=== PATIENT | female | born 1985 | race Caucasian/White ===

== ENCOUNTER 2016-08-10 09:37 | Emergency (ER) | payer OTHER ==
[2016-08-10] MEDS ORDERED: ZYRTEC5 M4 (09:46)
[2016-08-10] MEDS ORDERED: LEXAPRO20 MG PO (09:46)
== END 2016-08-10 10:25 | disposition home or self-care (01) ==
LOC: SED 09:37
DX: S61.200A Unspecified open wound of right index finger without damage to nail, initial encounter (principal); Z23 Encounter for immunization; W26.8XXA Contact with other sharp object(s), not elsewhere classified, initial encounter; Y92.69 Other specified industrial and construction area as the place of occurrence of the external cause; Y99.0 Civilian activity done for income or pay
CPT/HCPCS: 90471; 90715; 99283

== ENCOUNTER → 2016-10-23 | Outpatient (CLI) | payer OTHER ==
[~2016-10-23] MED LIST: LEXAPRO20 MG PO; ZYRTEC5 M4
--- NOTE | ~2016-10-23 | PFT ---
[id number] [facility] [address] [place], [place] [address] [id number] O MR#: [id number] NAME: KYREE WILL ROOM: SEX: F STUDY DATE/TIME: : 1985 AGE: 31 STUDY DESCRIPTION: Attending Physician: Jaime Rosales M.D. Referring Physician: Jaime Rosales M.D. Primary Care Physician: Jaime Rosales M.D. PULMONARY DIAGNOSTIC REPORT EXAM Pulmonary Function Test DESCRIPTION Spirometry is normal. There is no significant response to bronchodilators. Flow volume loop reveals a flattened inspiratory limb which can be seen in variable extrathoracic obstruction. Lung volumes reveal hyperinflation and air trapping. Diffusion capacity is normal. Clinical correlation will be needed for the possibility of upper airway obstruction. Dictated by... Heron Aguirre M.D. JEANNIE/karly TD: 10/23/2016 09:50 JOB #: [id number] PULMONARY DIAGNOSTIC REPORT Page 1 of 1
--- NOTE | ~2016-10-23 | ST ---
Unit #: [id number] #: [id number] Patient: KYREE WILL [id number] [address] [address] [id number] O MR#: [id number] NAME: KYREE WILL : 1985 SEX: F STUDY DATE/TIME: 10/26/2016 UNIT: [facility] ROOM: STUDY DESCRIPTION: Stress ECG Attending Physician: Jaime Rosales M.D. Referring Physician: Jaime Rosales M.D. Primary Care Physician: Jaime Rosales M.D. CARDIOLOGY REPORT PROCEDURE PERFORMED Stress ECG. INDICATION Chest discomfort. SUMMARY The patient exercised on a Bryson protocol to maximal effort. The patient did not experience any chest pain. The resting ECG was normal. With stress there were no diagnostic ST shifts, no dysrhythmias and no heart block noted. Heart rate increased from 82 to 178 (95%), and blood pressure increased from 110/60 to 120/80. The patient completed 10 minutes, 34 seconds of exercise. IMPRESSION 1. Good exercise tolerance based on the patient's age. 2. Normal heart rate response. 3. Low-normal blood pressure response. 4. Normal stress ECG. Dictated by... Shankar Escobedo/mayela TD: 10/26/2016 09:36 JOB #: [id number] CARDIOLOGY REPORT Page 1 of 1 X Bradley Garcia MD CARDIOLOGY REPORT
== END | disposition home or self-care (01) ==
LOC: CRC 07:45
DX: R06.00 Dyspnea, unspecified (principal); R07.89 Other chest pain
CPT/HCPCS: 93017; 94060; 94726; 94729